=== PATIENT | female | born 1960 | race Caucasian/White ===

== ENCOUNTER 2022-06-14 14:04 | Emergency (ER) | payer SELFPAY ==
[~2022-06-14] VITALS: Ht 157.5 cm; Wt 114.0 kg
[2022-06-14 22:02] VITALS: BP 114/78
== END 2022-06-14 22:03 | disposition home or self-care (01) ==
LOC: ER 14:04
DX: H11.31 Conjunctival hemorrhage, right eye (principal); E11.9 Type 2 diabetes mellitus without complications; I10 Essential (primary) hypertension; E78.00 Pure hypercholesterolemia, unspecified; E03.9 Hypothyroidism, unspecified; F41.9 Anxiety disorder, unspecified
CPT/HCPCS: 99281